=== PATIENT | male | born 1980 | race Two or more races ===

== ENCOUNTER 2019-02-20 16:43 | Emergency (ER) | payer BC ==
[~2019-02-20] VITALS: Ht 172.7 cm; Wt 81.6 kg
[2019-02-20 17:12] VITALS: BP 151/98
== END 2019-02-20 18:30 | disposition home or self-care (01) ==
LOC: ER 16:43
DX: I80.8 Phlebitis and thrombophlebitis of other sites (principal)
CPT/HCPCS: 93971-TC